=== PATIENT | male | born 1975 | race Two or more races ===

== ENCOUNTER 2019-03-27 17:27 | Emergency (ER) | payer MEDICAID ==
[~2019-03-27] VITALS: Ht 170.2 cm; Wt 54.0 kg
[~2019-03-27 17:27] MED LIST: ALB0.5UD IH; CLIN300C70 PO; LACT1CAP26 PO; LEVO500T2 PO
[2019-03-27 18:20] VITALS: BP 108/57
== END 2019-03-27 18:22 | disposition home or self-care (01) ==
LOC: ER 17:28
DX: F10.129 Alcohol abuse with intoxication, unspecified (principal); R47.81 Slurred speech; I25.2 Old myocardial infarction; J44.9 Chronic obstructive pulmonary disease, unspecified; G89.29 Other chronic pain; F15.90 Other stimulant use, unspecified, uncomplicated; Z88.1 Allergy status to other antibiotic agents; Z88.8 Allergy status to other drugs, medicaments and biological substances; Z79.899 Other long term (current) drug therapy; Y90.9 Presence of alcohol in blood, level not specified
CPT/HCPCS: 99283

== ENCOUNTER 2020-02-11 13:19 | Inpatient (IN) | payer MEDICAID ==
[~2020-02-11] VITALS: Ht 170.2 cm; Wt 56.8 kg
[2020-02-11 13:52] LABS: BASOPHILS # (AUTO) 0.1 X10'3 (0-0.2); EOSINOPHILS % (AUTO) 0.4 % (0-6); HEMATOCRIT 36.4 % (42.0-52.0); HEMOGLOBIN 12.5 g/dl (14.0-17.9); LYMPHOCYTES # (AUTO) 2.3 X10'3 (1.1-4.8); LYMPHOCYTES % (AUTO) 20.6 % (21-51); MEAN CORPUSCULAR HEMOGLOBIN 37.6 PG (27.0-31.0); MEAN CORPUSCULAR HGB CONC 34.3 g/dL (33.0-36.5); MEAN CORPUSCULAR VOLUME 109.5 FL (78-98); MEAN PLATELET VOLUME 7.5 FL (7.4-10.4); MONOCYTES # (AUTO) 1.3 X10'3 (0-0.9); MONOCYTES % (AUTO) 11.2 % (2-12); NEUTROPHILS # (AUTO) 7.5 X10'3 (1.8-7.7); NEUTROPHILS % (AUTO) 66.8 % (42-75); PLATELET COUNT 266 X10'3 (140-440); RED BLOOD COUNT 3.33 X10'6 (4.70-6.10); WHITE BLOOD COUNT 11.2 X10'3 (4.5-11.0)
[2020-02-11 13:59] LABS: ALANINE AMINOTRANSFERASE 14 U/L (12-78); ALBUMIN 2.7 G/DL (3.4-5.0); ALBUMIN/GLOBULIN RATIO 0.7 (1.1-1.5); ALKALINE PHOSPHATASE 111 IU/L (46-116); ANION GAP 12 (8-16); ASPARTATE AMINO TRANSFERASE 65 U/L (10-37); BILIRUBIN,TOTAL 0.3 MG/DL (0.1-1.0); BLOOD UREA NITROGEN 2 MG/DL (7-18); BUN/CREATININE RATIO 3.3 (5.4-32.0); CALCIUM 8.1 MG/DL (8.5-10.1); CHLORIDE 102 MMOL/L (99-107); GLUCOSE 83 MG/DL (70-104); POTASSIUM 3.3 MMOL/L (3.5-5.1); SODIUM 139 MMOL/L (135-145); TOTAL PROTEIN 6.4 G/DL (6.4-8.2); eGFR > 90 ML/MIN
[2020-02-11 14:09] LABS: CREATININE 0.61 MG/DL (0.60-1.10)
[2020-02-11] MEDS ORDERED: CefTRIAXone/D5W-Rocephin 1gm 50 ML IV ONE (16:35)
[2020-02-11] MEDS ORDERED: normal saline 1000ML IV soln IVB ONE (16:35)
[2020-02-11] MEDS ORDERED: dexamethasone sod phosphate 10mg/ml inj IV STA (16:36)
[2020-02-11 16:59] LABS: C-REACTIVE PROTEIN 12.41 MG/DL (0.0-0.5)
[2020-02-11 17:07] LABS: D-DIMER 6.53 MG/L FEU (0-0.50)
[2020-02-11] MEDS ORDERED: HYDROcodone/acetaminophen 10/325mg tab PO PRN (17:10)
[2020-02-11] MEDS ORDERED: HYDROcodone/acetaminophen 5mg/325mg tablet PO PRN (17:10)
[2020-02-11] MEDS ORDERED: morphine 2 MG/ML inj. syringe IV PRN ×2 (17:10)
[2020-02-11] MEDS ORDERED: ondansetron/PF 4mg/2ml inj IV PRN (17:10)
[2020-02-11] MEDS ORDERED: mag hydrox/Alum hydrox/simeth 30ml oral suspension PO PRN (17:10)
[2020-02-11] MEDS ORDERED: magnesium hydroxide 30ml (MOM) UD suspension PO PRN (17:10)
[2020-02-11] MEDS ORDERED: acetaminophen 325mg tablet PO PRN ×2 (17:10)
--- NOTE | 2020-02-11 17:41 | NUR ---
NOTIVED BY LAB PT NEG FOR COVID
[2020-02-11] MEDS ORDERED: LORazepam 2 mg/ml vial IV PRN (19:55)
[2020-02-11] MEDS ORDERED: thiamine inj. 100 MG in normal saline 100ml IV soln 100 ML IV ONE (19:55)
[2020-02-11] MEDS ORDERED: haloperidol lactate 5mg/ml inj IM PRN (19:55)
[2020-02-11] MEDS ORDERED: haloperidol 5mg tablet PO PRN (19:55)
[2020-02-11 20:00] VITALS: BP 143/84
[2020-02-11] MEDS: normal saline 1000ml 1,000 ML IV SCH (21:15)
[2020-02-12] VITALS: BP 164/91
[2020-02-12 06:15] LABS: ALBUMIN 2.3 G/DL (3.4-5.0); ANION GAP 8 (8-16); BLOOD UREA NITROGEN 4 MG/DL (7-18); CALCIUM 8.4 MG/DL (8.5-10.1); CHLORIDE 104 MMOL/L (99-107); CREATININE 0.67 MG/DL (0.60-1.10); GLUCOSE 151 MG/DL (70-104); POTASSIUM 4.6 MMOL/L (3.5-5.1); SODIUM 140 MMOL/L (135-145); eGFR > 90 ML/MIN
[2020-02-12 06:16] LABS: BASOPHILS % (AUTO) 0.5 % (0-1); EOSINOPHILS % (AUTO) 0 % (0-6); HEMATOCRIT 36.9 % (42.0-52.0); HEMOGLOBIN 12.5 g/dl (14.0-17.9); LYMPHOCYTES # (AUTO) 0.6 X10'3 (1.1-4.8); LYMPHOCYTES % (AUTO) 8.1 % (21-51); MEAN CORPUSCULAR HEMOGLOBIN 38.1 PG (27.0-31.0); MEAN CORPUSCULAR HGB CONC 33.9 g/dL (33.0-36.5); MEAN CORPUSCULAR VOLUME 112.5 FL (78-98); MEAN PLATELET VOLUME 8.3 FL (7.4-10.4); MONOCYTES # (AUTO) 0.3 X10'3 (0-0.9); MONOCYTES % (AUTO) 3.7 % (2-12); NEUTROPHILS % (AUTO) 87.7 % (42-75); PLATELET COUNT 234 X10'3 (140-440); RED BLOOD COUNT 3.28 X10'6 (4.70-6.10); RED CELL DISTRIBUTION WIDTH 14.9 % (11.5-14.5)
[2020-02-12 06:30] VITALS: BP 167/92
--- NOTE | 2020-02-12 06:39 | NUR ---
Problems reprioritized. Patient report given, questions answered & plan of care reviewed with Tatiana MORA. Addendum: 02/12/20 at 0639 by Martita Dunbar RN Amended: Links added.
--- NOTE | 2020-02-12 06:40 | NUR ---
Patient in room [facility] 360. I have received report from MORGAN Anders and had the opportunity to ask questions and assume patient care.
[2020-02-12] MEDS: normal saline 1000ml 1,000 ML IV SCH ×3 (07:22→17:54)
[2020-02-12 07:43] LABS: NUCLEATED RED BLOOD CELLS 1 /100WBC (0-0); PLATELET ESTIMATE NORMAL; TOTAL CELLS COUNTED 100
[2020-02-12 07:44] LABS: POLYCHROMASIA FEW
[2020-02-12 07:45] LABS: STOMATOCYTES FEW
[2020-02-12] MEDS ORDERED: multivitamins, therapeutics tablet PO SCH (08:00)
[2020-02-12] MEDS ORDERED: folic acid inj. 2 MG, thiamine inj. 100 MG, MVI, adult No.4 with vit. K 10 ML in dextro... IV SCH ×4 (08:00)
[2020-02-12] MEDS ORDERED: thiamine 100mg tablet PO SCH (08:00)
[2020-02-12] MEDS ORDERED: folic acid 1mg tablet PO SCH (08:00)
[2020-02-12] MEDS: levoFLOXACIN-Levaquin 750MG/D5 150 ML IV SCH (09:25)
[2020-02-12] MEDS: folic acid 1mg tablet PO SCH (09:26)
[2020-02-12] MEDS: multivitamins, therapeutics tablet PO SCH (09:26)
[2020-02-12] MEDS: thiamine 100mg tablet PO SCH (09:26)
[2020-02-12 12:27] VITALS: BP 169/82
--- NOTE | 2020-02-12 18:49 | NUR ---
Patient in room [facility] 360. I have received report from Tatiana MORA and had the opportunity to ask questions and assume patient care.
--- NOTE | 2020-02-12 18:50 | NUR ---
Problems reprioritized. Patient report given, questions answered & plan of care reviewed with MORGAN Ventura.
[2020-02-12] MEDS: lactobacillus rhamnosus 10,000 MMU CELLS/CAPSULE PO SCH (19:15)
[2020-02-12 19:40] VITALS: BP 149/81
[2020-02-13] VITALS: BP 122/71
[2020-02-13] MEDS: normal saline 1000ml 1,000 ML IV SCH (02:50)
--- NOTE | 2020-02-13 06:26 | NUR ---
Problems reprioritized. Patient report given, questions answered & plan of care reviewed with Nimisha MORA.
[2020-02-13 06:32] LABS: BASOPHILS # (AUTO) 0.1 X10'3 (0-0.2); BASOPHILS % (AUTO) 0.7 % (0-1); EOSINOPHILS % (AUTO) 0.1 % (0-6); HEMOGLOBIN 12.3 g/dl (14.0-17.9); LYMPHOCYTES # (AUTO) 2.4 X10'3 (1.1-4.8); LYMPHOCYTES % (AUTO) 22.1 % (21-51); MEAN CORPUSCULAR HEMOGLOBIN 38.6 PG (27.0-31.0); MEAN CORPUSCULAR HGB CONC 34.1 g/dL (33.0-36.5); MEAN CORPUSCULAR VOLUME 113.2 FL (78-98); MEAN PLATELET VOLUME 8.2 FL (7.4-10.4); MONOCYTES # (AUTO) 0.7 X10'3 (0-0.9); MONOCYTES % (AUTO) 6.8 % (2-12); NEUTROPHILS # (AUTO) 7.5 X10'3 (1.8-7.7); NEUTROPHILS % (AUTO) 70.3 % (42-75); PLATELET COUNT 230 X10'3 (140-440); RED BLOOD COUNT 3.18 X10'6 (4.70-6.10); RED CELL DISTRIBUTION WIDTH 15.1 % (11.5-14.5); WHITE BLOOD COUNT 10.7 X10'3 (4.5-11.0)
[2020-02-13 06:44] LABS: ALBUMIN 2.2 G/DL (3.4-5.0); ANION GAP 8 (8-16); BLOOD UREA NITROGEN 3 MG/DL (7-18); BUN/CREATININE RATIO 5.2 (5.4-32.0); CHLORIDE 108 MMOL/L (99-107); CREATININE 0.58 MG/DL (0.60-1.10); GLUCOSE 100 MG/DL (70-104); POTASSIUM 3.1 MMOL/L (3.5-5.1); SODIUM 144 MMOL/L (135-145); TOTAL CARBON DIOXIDE 27.6 MMOL/L (24-32); eGFR > 90 ML/MIN
[2020-02-13 07:00] VITALS: BP 142/81
[2020-02-13 07:25] LABS: PLATELET ESTIMATE NORMAL
[2020-02-13 07:26] LABS: ANISOCYTOSIS 1+; LARGE PLATELETS FEW
[2020-02-13] MEDS: thiamine 100mg tablet PO SCH (07:27)
[2020-02-13] MEDS: lactobacillus rhamnosus 10,000 MMU CELLS/CAPSULE PO SCH (07:27)
[2020-02-13] MEDS: multivitamins, therapeutics tablet PO SCH (07:27)
[2020-02-13] MEDS: folic acid 1mg tablet PO SCH (07:27)
[2020-02-13] MEDS: levoFLOXACIN-Levaquin 750MG/D5 150 ML IV SCH (07:28)
[2020-02-13] MEDS ORDERED: potassium Cl 20 mEq SR tablet PO STA (11:27)
[2020-02-13 11:50] VITALS: BP 133/93
[2020-02-13] MEDS ORDERED: LEVO750T21 PO (12:04)
[2020-02-13] MEDS ORDERED: ALBU8.5H8 IH (12:04)
[2020-02-13] MEDS ORDERED: ondansetron 4mg rapidly disintigrating tab PO PRN (12:10)
--- NOTE | 2020-02-13 13:06 | NUR ---
Medications called into [facility] in [place] per patient request. Patient discharged via self and taken from unit via ambulation with x1 staff.
--- NOTE | 2020-02-13 13:16 | NUR ---
Patient discharged. stable and appropriate. Prescriptions called into preferred pharmacy. Discharge instructions given and reviewed with patient all questions answered. IV removed. All belongings taken from room.
== END 2020-02-13 13:05 | disposition home or self-care (01) | DRG 139 ==
LOC: ER 13:20 → SUR 3N 17:10
PROVIDERS: ADMIT Internal Medicine; ATTEND Internal Medicine
DX: J18.9 Pneumonia, unspecified organism (principal); J96.00 Acute respiratory failure, unspecified whether with hypoxia or hypercapnia; E43 Unspecified severe protein-calorie malnutrition; E87.2 Acidosis; E86.1 Hypovolemia; F15.90 Other stimulant use, unspecified, uncomplicated; G89.29 Other chronic pain; Z20.828 Contact with and (suspected) exposure to other viral communicable diseases; J44.0 Chronic obstructive pulmonary disease with (acute) lower respiratory infection; E87.6 Hypokalemia; F17.210 Nicotine dependence, cigarettes, uncomplicated; I25.2 Old myocardial infarction; Z59.0 Homelessness; Z79.899 Other long term (current) drug therapy; Z87.11 Personal history of peptic ulcer disease; Z68.1 Body mass index [BMI] 19.9 or less, adult; Z88.8 Allergy status to other drugs, medicaments and biological substances
CPT/HCPCS: 36415; 71045; 80048; 80053; 82948; 83605; 83880; 85025; 85379; 86140; 87040; 87081; 87635; 94667; 94668; 94760; 99285; G0378; J0696; J1100; J1956; J7030

== ENCOUNTER 2020-04-26 13:33 | Emergency (ER) | payer MEDICAID ==
[~2020-04-26] VITALS: Ht 170.2 cm; Wt 54.2 kg
[~2020-04-26 13:33] MED LIST changes: +ALBU8.5H8 IH; -CLIN300C70 PO; -LACT1CAP26 PO; -LEVO500T2 PO
[2020-04-26 13:42] VITALS: BP 112/71
[2020-04-26] MEDS ORDERED: CEPH250T PO (15:00)
== END 2020-04-26 15:14 | disposition home or self-care (01) ==
LOC: ER 13:34
DX: L03.012 Cellulitis of left finger (principal); M79.89 Other specified soft tissue disorders; M79.645 Pain in left finger(s); I25.2 Old myocardial infarction; J44.9 Chronic obstructive pulmonary disease, unspecified; G89.29 Other chronic pain; F15.90 Other stimulant use, unspecified, uncomplicated; Z87.11 Personal history of peptic ulcer disease; Z72.89 Other problems related to lifestyle; Z88.1 Allergy status to other antibiotic agents; Z88.8 Allergy status to other drugs, medicaments and biological substances; Z79.2 Long term (current) use of antibiotics; Z79.899 Other long term (current) drug therapy
CPT/HCPCS: 99283

== ENCOUNTER 2020-04-28 13:11 | Emergency (ER) | payer MEDICAID ==
[~2020-04-28] VITALS: Ht 170.2 cm; Wt 44.0 kg
[~2020-04-28 13:11] MED LIST changes: +CEPH250T PO
[2020-04-28] MEDS ORDERED: HYDROcodone/acetaminophen 10/325mg tab PO ONE (15:20)
[2020-04-28] MEDS ORDERED: NAPR-56 PO (16:06)
[2020-04-28] MEDS ORDERED: HYDR-4383 PO (16:06)
[2020-04-28 16:17] VITALS: BP 118/74
== END 2020-04-28 16:15 | disposition home or self-care (01) ==
LOC: ER 13:12
DX: L03.012 Cellulitis of left finger (principal); I25.2 Old myocardial infarction; J45.909 Unspecified asthma, uncomplicated; J44.9 Chronic obstructive pulmonary disease, unspecified; G89.29 Other chronic pain; F15.90 Other stimulant use, unspecified, uncomplicated; Z88.1 Allergy status to other antibiotic agents; Z88.8 Allergy status to other drugs, medicaments and biological substances; Z79.2 Long term (current) use of antibiotics; Z79.899 Other long term (current) drug therapy
CPT/HCPCS: 73140; 99283

== ENCOUNTER 2020-11-12 06:37 | Inpatient (IN) | payer MEDICAID ==
[~2020-11-12] VITALS: Ht 170.2 cm; Wt 53.8 kg
[~2020-11-12 06:37] MED LIST changes: -CEPH250T PO; +HYDR-4383 PO
[2020-11-12] MEDS ORDERED: normal saline 1000ML IV soln IVB ONE (07:10)
[2020-11-12] MEDS ORDERED: ipratropium/albuterol 3ml nebule NEB ONE (07:10)
[2020-11-12] MEDS ORDERED: LORazepam 1 MG tablet PO ONE (07:10)
[2020-11-12] MEDS ORDERED: methylPREDNISolone sod succ 125mg/2ml vial IV ONE (07:10)
[2020-11-12 07:42] LABS: BASOPHILS # (AUTO) 0.1 X10'3 (0-0.2); BASOPHILS % (AUTO) 1.2 % (0-1); EOSINOPHILS % (AUTO) 0.6 % (0-6); HEMATOCRIT 29.1 % (42.0-52.0); HEMOGLOBIN 10.1 g/dl (14.0-17.9); LYMPHOCYTES # (AUTO) 0.9 X10'3 (1.1-4.8); LYMPHOCYTES % (AUTO) 16.5 % (21-51); MEAN CORPUSCULAR HEMOGLOBIN 40.2 PG (27.0-31.0); MEAN CORPUSCULAR HGB CONC 34.5 g/dL (33.0-36.5); MEAN CORPUSCULAR VOLUME 116.5 FL (78-98); MONOCYTES # (AUTO) 0.3 X10'3 (0-0.9); MONOCYTES % (AUTO) 4.5 % (2-12); NEUTROPHILS # (AUTO) 4.4 X10'3 (1.8-7.7); NEUTROPHILS % (AUTO) 77.2 % (42-75); PLATELET COUNT 166 X10'3 (140-440); RED CELL DISTRIBUTION WIDTH 15.8 % (11.5-14.5); WHITE BLOOD COUNT 5.7 X10'3 (4.5-11.0)
[2020-11-12 08:03] LABS: ALANINE AMINOTRANSFERASE 37 U/L (12-78); ALBUMIN 2.3 G/DL (3.4-5.0); ALBUMIN/GLOBULIN RATIO 0.7 (1.1-1.5); ALKALINE PHOSPHATASE 239 IU/L (46-116); ANION GAP 13 (8-16); ASPARTATE AMINO TRANSFERASE 169 U/L (10-37); BILIRUBIN,TOTAL 1.5 MG/DL (0.1-1.0); CALCIUM 8.2 MG/DL (8.5-10.1); CHLORIDE 101 MMOL/L (99-107); CREATININE 0.69 MG/DL (0.60-1.10); GLUCOSE 116 MG/DL (70-104); POTASSIUM 3.6 MMOL/L (3.5-5.1); SODIUM 139 MMOL/L (135-145); TOTAL CARBON DIOXIDE 24.8 MMOL/L (24-32); TOTAL PROTEIN 5.7 G/DL (6.4-8.2); eGFR > 90 ML/MIN
[2020-11-12 08:07] LABS: BLOOD UREA NITROGEN 6 MG/DL (7-18); BUN/CREATININE RATIO 8.7 (5.4-32.0)
[2020-11-12] MEDS ORDERED: enoxaparin 100mg/ml syringe SUBCUT ONE (08:25)
[2020-11-12] MEDS ORDERED: aspirin 81mg tab.chew PO ONE (08:25)
[2020-11-12] MEDS ORDERED: iohexol 350MG/ML 100ml bottle IV ONE (08:35)
--- NOTE | 2020-11-12 08:53 | NUR ---
Pt taken to CT
[2020-11-12 08:59] LABS: HYPOCHROMASIA 1+; PLATELET ESTIMATE NORMAL; TOTAL CELLS COUNTED 100
[2020-11-12 09:01] LABS: ETHANOL 0.057 GM/DL (0.0-0.010)
[2020-11-12 09:04] LABS: D-DIMER 3.48 MG/L FEU (0-0.50)
[2020-11-12 09:05] LABS: POLYCHROMASIA FEW
[2020-11-12 09:16] LABS: STOMATOCYTES 2+
[2020-11-12] MEDS ORDERED: acetaminophen 325mg tablet PO PRN ×2 (09:35)
[2020-11-12] MEDS ORDERED: magnesium hydroxide 30ml (MOM) UD suspension PO PRN (09:35)
[2020-11-12] MEDS ORDERED: morphine 2 MG/ML inj. syringe IV PRN ×2 (09:35)
[2020-11-12] MEDS ORDERED: mag hydrox/Alum hydrox/simeth 30ml oral suspension PO PRN ×2 (09:35→11:40)
[2020-11-12] MEDS ORDERED: HYDROcodone/acetaminophen 10/325mg tab PO PRN (09:35)
[2020-11-12] MEDS ORDERED: nitroGLYCERIN 0.4mg SUBLingual tab SL PRN (09:35)
[2020-11-12] MEDS ORDERED: ondansetron/PF 4mg/2ml inj IV PRN (09:35)
[2020-11-12] MEDS ORDERED: HYDROcodone/acetaminophen 5mg/325mg tablet PO PRN (09:35)
[2020-11-12 09:55] LABS: URINE AMPHETAMINE SCREEN NEGATIVE (Neg); URINE BARBITUATE SCREEN NEGATIVE (Neg); URINE BENZODIAZEPINES SCREEN NEGATIVE (Neg); URINE CANNABINOID SCREEN POSITIVE (Neg); URINE COCAINE SCREEN NEGATIVE (Neg); URINE METHADONE SCREEN NEGATIVE (Neg); URINE OPIATE SCREEN NEGATIVE (Neg); URINE PHENCYCLIDINE SCREEN NEGATIVE (Neg)
--- NOTE | 2020-11-12 10:00 | NUR ---
Patient in room PCU 3013. I have received report from MORGAN Cui and had the opportunity to ask questions and assume patient care.
--- NOTE | 2020-11-12 10:45 | NUR ---
Patient arrived from ED via w/c and settled into bed. Oriented to unit. Resting in bed.
[2020-11-12] MEDS ORDERED: dicyclomine 10 MG capsule PO PRN (11:40)
[2020-11-12] MEDS ORDERED: cyclobenzaprine 10mg tablet PO PRN (11:40)
[2020-11-12] MEDS ORDERED: loperamide 2mg capsule PO PRN (11:40)
[2020-11-12] MEDS ORDERED: haloperidol 5mg tablet PO PRN (11:40)
[2020-11-12] MEDS ORDERED: cloNIDine 0.1 mg tablet PO PRN (11:40)
[2020-11-12] MEDS: nicotine 21mg patch - 24 hr TD SCH (11:40)
[2020-11-12] MEDS ORDERED: thiamine inj. 100 MG in normal saline 100ml IV soln 100 ML IV ONE (11:40)
[2020-11-12] MEDS ORDERED: folic acid inj. 2 MG, thiamine inj. 100 MG, MVI, adult No.4 with vit. K 10 ML in dextro... IV SCH ×4 (11:40)
[2020-11-12] MEDS ORDERED: haloperidol lactate 5mg/ml inj IM PRN (11:40)
--- NOTE | 2020-11-12 11:54 | NUR ---
Paged Dr. Rouse re: pt covid swab: PAGER ID: [phone] MESSAGE: pt jamie Cotton rm [id number] RE: covid swab: Dr. Boothe requires call from hospitalist to initiate. Can you speak to Dr. Boothe? Thank you Michelle [phone]
[2020-11-12 12:00] VITALS: BP 118/78
[2020-11-12] MEDS: LORazepam 2 mg/ml vial IV PRN ×2 (12:06→20:00)
[2020-11-12] MEDS: folic acid 1mg/0.2ml inj IV SCH (12:39)
[2020-11-12] MEDS ORDERED: ALBU8HFA PO (12:43)
[2020-11-12] MEDS ORDERED: BUDE10.26 IH (12:43)
--- NOTE | 2020-11-12 12:57 | NUR ---
Malnutrition Consult: Pt admit DX tachycardia hx heavy etoh and meth abuse s/p [facility] per E[facility]. MCV 116.5 on admit receiving thiamin and folic acid for etoh per EMR. Current bed scaled wt 53.8kg; noted pt prior admit February 2020 standing scaled wt 56.8kg -3kg(5%) 9 months non- significant wt loss. Physical assessment and PO documentation of regular diet pending at this time. Will need further information prior to deciding malnutrition status. Addendum: 11/12/20 at [address] Amended: Links added.
[2020-11-12 15:00] VITALS: BP 125/78
--- NOTE | 2020-11-12 16:52 | NUR ---
Paged Dr. Rouse: PAGER ID: [phone] MESSAGE: pt jamie Cotton [id number] follow-up re: COVID swab. Would you still like a covid swab on this pt? Michelle [phone]
[2020-11-12 18:00] VITALS: BP 123/88
--- NOTE | 2020-11-12 18:11 | NUR ---
Problems reprioritized. Patient report given, questions answered & plan of care reviewed with MORGAN Brandt.
--- NOTE | 2020-11-12 18:15 | NUR ---
Patient in room PCU 3013. I have received report from Michelle MORA and had the opportunity to ask questions and assume patient care.
[2020-11-12] MEDS: enoxaparin 60mg/0.6ml syringe SUBCUT SCH (19:51)
[2020-11-12 22:00] VITALS: BP 115/70
[2020-11-13 02:00] VITALS: BP 124/73
[2020-11-13] MEDS: LORazepam 2 mg/ml vial IV PRN ×2 (04:34→07:54)
[2020-11-13 06:00] VITALS: BP 106/63
--- NOTE | 2020-11-13 06:10 | NUR ---
Patient in room PCU 3010. I have received report from MORGAN Brandt and had the opportunity to ask questions and assume patient care.
--- NOTE | 2020-11-13 06:10 | NUR ---
Problems reprioritized. Patient report given, questions answered & plan of care reviewed with Michelle MORA.
[2020-11-13 07:51] LABS: BASOPHILS % (AUTO) 0.3 % (0-1); EOSINOPHILS % (AUTO) 0.2 % (0-6); HEMATOCRIT 27.4 % (42.0-52.0); HEMOGLOBIN 9.1 g/dl (14.0-17.9); LYMPHOCYTES % (AUTO) 27.2 % (21-51); MEAN CORPUSCULAR HEMOGLOBIN 40.2 PG (27.0-31.0); MEAN CORPUSCULAR HGB CONC 33.4 g/dL (33.0-36.5); MEAN CORPUSCULAR VOLUME 120.1 FL (78-98); MEAN PLATELET VOLUME 8.8 FL (7.4-10.4); MONOCYTES # (AUTO) 0.4 X10'3 (0-0.9); MONOCYTES % (AUTO) 4.7 % (2-12); NEUTROPHILS # (AUTO) 5.1 X10'3 (1.8-7.7); NEUTROPHILS % (AUTO) 67.6 % (42-75); PLATELET COUNT 138 X10'3 (140-440); RED BLOOD COUNT 2.28 X10'6 (4.70-6.10); RED CELL DISTRIBUTION WIDTH 15.9 % (11.5-14.5); WHITE BLOOD COUNT 7.5 X10'3 (4.5-11.0)
[2020-11-13] MEDS: aspirin 81mg tablet.DR PO SCH (07:52)
[2020-11-13] MEDS: thiamine 100mg tablet PO SCH (07:52)
[2020-11-13] MEDS: enoxaparin 60mg/0.6ml syringe SUBCUT SCH (07:54)
[2020-11-13] MEDS: folic acid 1mg/0.2ml inj IV SCH (07:54)
[2020-11-13] MEDS: nicotine 21mg patch - 24 hr TD SCH (07:59)
[2020-11-13] MEDS ORDERED: thiamine inj. 100 MG in normal saline 100ml IV soln 100 ML IV SCH (08:00)
[2020-11-13 08:03] LABS: ALANINE AMINOTRANSFERASE 36 U/L (12-78); ALBUMIN 2.1 G/DL (3.4-5.0); ALBUMIN/GLOBULIN RATIO 0.7 (1.1-1.5); ALKALINE PHOSPHATASE 222 IU/L (46-116); AMYLASE 54 U/L (25-115); ANION GAP 8 (8-16); ASPARTATE AMINO TRANSFERASE 125 U/L (10-37); BILIRUBIN,TOTAL 1.2 MG/DL (0.1-1.0); BLOOD UREA NITROGEN 4 MG/DL (7-18); BUN/CREATININE RATIO 4.7 (5.4-32.0); CALCIUM 8.1 MG/DL (8.5-10.1); CHLORIDE 108 MMOL/L (99-107); CHOL/HDL RATIO 4.9 (0.00-4.99); CHOLESTEROL 214 MG/DL (0-200); CREATININE 0.85 MG/DL (0.60-1.10); GLUCOSE 98 MG/DL (70-104); HDL CHOLESTEROL 44 MG/DL (35-60); LDL CHOLESTEROL 124 MG/DL (50-100); LIPASE 194 U/L (73-393); PHOSPHORUS 2.7 MG/DL (2.3-4.5); POTASSIUM 3.6 MMOL/L (3.5-5.1); SODIUM 143 MMOL/L (135-145); TOTAL CARBON DIOXIDE 27.2 MMOL/L (24-32); TOTAL PROTEIN 5.3 G/DL (6.4-8.2); TRIGLYCERIDES 145 MG/DL (20-135); eGFR > 90 ML/MIN
--- NOTE | 2020-11-13 09:55 | NUR ---
Paged RT for eval and tx: re: Marielena Cotton rm [id number]. New order for RT eval and tx. Pt requesting breathing MD oni okayed. Thank you. Michelle [phone]
[2020-11-13] MEDS: nicotine 14mg patch - 24hr TD SCH (10:16)
[2020-11-13 11:00] VITALS: BP 110/70
[2020-11-13] MEDS ORDERED: albuterol 2.5 MG/3 ML nebule NEB SCH (12:00)
[2020-11-13] MEDS: albuterol 2.5 MG/3 ML nebule NEB SCH ×3 (14:59→22:45)
[2020-11-13 15:00] VITALS: BP 111/71
--- NOTE | 2020-11-13 15:14 | NUR ---
Malnutrition follow up: Per physical assessment, pt has no edema and normal muscle strength. PO intake 50-75% on regular diet, pt meeting estimated nutrient needs. At this time, pt lacks a minimum of 2 criteria for malnutrition, will provide full assessment at date above. Addendum: 11/13/20 at [address] Amended: Links added. Addendum: 11/13/20 at [address] MAYELA agrees w/ above winter intern note.
[2020-11-13 18:00] VITALS: BP 112/73
--- NOTE | 2020-11-13 18:05 | NUR ---
Problems reprioritized. Patient report given, questions answered & plan of care reviewed with MORGAN Brandt.
[2020-11-13] MEDS: apixaban 5mg tablet PO SCH (19:33)
[2020-11-13 22:00] VITALS: BP 115/78
[2020-11-14 02:00] VITALS: BP 123/83
[2020-11-14] MEDS: albuterol 2.5 MG/3 ML nebule NEB SCH ×3 (02:52→11:00)
--- NOTE | 2020-11-14 06:24 | NUR ---
Problems reprioritized. Patient report given, questions answered & plan of care reviewed with Mitali MORA.
--- NOTE | 2020-11-14 06:30 | NUR ---
Patient in room PCU 3010. I have received report from Eligio MORA and had the opportunity to ask questions and assume patient care.
[2020-11-14 07:00] VITALS: BP 123/77
[2020-11-14] MEDS: thiamine 100mg tablet PO SCH (07:56)
[2020-11-14] MEDS: LORazepam 2 mg/ml vial IV PRN (07:57)
[2020-11-14] MEDS: aspirin 81mg tablet.DR PO SCH (07:57)
[2020-11-14] MEDS: apixaban 5mg tablet PO SCH (07:57)
[2020-11-14] MEDS: nicotine 14mg patch - 24hr TD SCH (07:57)
[2020-11-14] MEDS ORDERED: folic acid 1mg tablet PO SCH (08:00)
[2020-11-14 08:21] LABS: BASOPHILS % (AUTO) 0.5 % (0-1); EOSINOPHILS # (AUTO) 0.1 X10'3 (0-0.9); EOSINOPHILS % (AUTO) 1.1 % (0-6); HEMATOCRIT 27.7 % (42.0-52.0); HEMOGLOBIN 9.4 g/dl (14.0-17.9); LYMPHOCYTES # (AUTO) 2.3 X10'3 (1.1-4.8); LYMPHOCYTES % (AUTO) 38.5 % (21-51); MEAN CORPUSCULAR HEMOGLOBIN 40.7 PG (27.0-31.0); MEAN CORPUSCULAR HGB CONC 33.9 g/dL (33.0-36.5); MEAN PLATELET VOLUME 8.3 FL (7.4-10.4); MONOCYTES # (AUTO) 0.3 X10'3 (0-0.9); MONOCYTES % (AUTO) 5.1 % (2-12); NEUTROPHILS # (AUTO) 3.3 X10'3 (1.8-7.7); NEUTROPHILS % (AUTO) 54.8 % (42-75); PLATELET COUNT 144 X10'3 (140-440); RED BLOOD COUNT 2.31 X10'6 (4.70-6.10); RED CELL DISTRIBUTION WIDTH 16.2 % (11.5-14.5)
[2020-11-14 08:45] LABS: ANION GAP 8 (8-16); BILIRUBIN,TOTAL 0.6 MG/DL (0.1-1.0); BLOOD UREA NITROGEN 4 MG/DL (7-18); BUN/CREATININE RATIO 5.3 (5.4-32.0); CALCIUM 8.2 MG/DL (8.5-10.1); CHLORIDE 107 MMOL/L (99-107); CREATININE 0.75 MG/DL (0.60-1.10); GLUCOSE 118 MG/DL (70-104); MAGNESIUM 1.6 MG/DL (1.5-2.4); PHOSPHORUS 4.2 MG/DL (2.3-4.5); POTASSIUM 3.1 MMOL/L (3.5-5.1); SODIUM 144 MMOL/L (135-145); TOTAL CARBON DIOXIDE 29.3 MMOL/L (24-32); TOTAL PROTEIN 5.4 G/DL (6.4-8.2); eGFR > 90 ML/MIN
[2020-11-14 08:46] LABS: ALANINE AMINOTRANSFERASE 29 U/L (12-78); ALBUMIN 2.1 G/DL (3.4-5.0); ALBUMIN/GLOBULIN RATIO 0.6 (1.1-1.5); ALKALINE PHOSPHATASE 206 IU/L (46-116); AMYLASE 70 U/L (25-115); ASPARTATE AMINO TRANSFERASE 82 U/L (10-37); LIPASE 251 U/L (73-393)
[2020-11-14 09:13] LABS: ANISOCYTOSIS 1+; HYPOCHROMASIA 1+; PLATELET ESTIMATE NORMAL; POLYCHROMASIA FEW
[2020-11-14] MEDS ORDERED: BUDE10.26 IH (09:40)
[2020-11-14] MEDS ORDERED: APIX5TAB3 PO (11:18)
[2020-11-14] MEDS ORDERED: LORazepam 2 mg/ml vial IV PRN (11:40)
[2020-11-14] MEDS ORDERED: LORazepam 1 MG tablet PO PRN (11:40)
--- NOTE | 2020-11-14 15:20 | NUR ---
Pt stable for discharge per MD order, all discharge instructions reviewed with patient and all questions answered. PIV discontinued, cannula intact. Telemetry discontinued, maintenance mechanic telephone notified. New prescriptions faxed to pharmacy. All belongings collected and sent with patient. Pt picked up in taxi in front lobby, wheeled to lobby by staff.
[2020-11-15 14:37] LABS: ANTITHROMBIN ACTIVITY 75 % (75-135); ANTITHROMBIN ANTIGEN 62 % (72-124)
[2020-11-16] MEDS ORDERED: LORazepam 2 mg/ml vial IV PRN (11:40)
[2020-11-16] MEDS ORDERED: LORazepam 1 MG tablet PO PRN (11:40)
== END 2020-11-14 12:42 | disposition home or self-care (01) | DRG 140 ==
LOC: ER 06:42 → ED HOLD 09:33 → PCU 3S 10:40
PROVIDERS: ADMIT Internal Medicine; ATTEND Internal Medicine
PROC: B2261ZZ Computerized Tomography (CT Scan) of Right and Left Heart using Low Osmolar Contrast (ICD-10-PCS; principal; 2020-11-12)
DX: J44.1 Chronic obstructive pulmonary disease with (acute) exacerbation (principal); I21.A1 Myocardial infarction type 2; E43 Unspecified severe protein-calorie malnutrition; I26.99 Other pulmonary embolism without acute cor pulmonale; D68.59 Other primary thrombophilia; F15.90 Other stimulant use, unspecified, uncomplicated; F17.200 Nicotine dependence, unspecified, uncomplicated; Z88.8 Allergy status to other drugs, medicaments and biological substances; I25.2 Old myocardial infarction; G89.29 Other chronic pain; J40 Bronchitis, not specified as acute or chronic; Z87.11 Personal history of peptic ulcer disease; D53.9 Nutritional anemia, unspecified; Z59.0 Homelessness; Z79.01 Long term (current) use of anticoagulants; Z68.1 Body mass index [BMI] 19.9 or less, adult; F10.129 Alcohol abuse with intoxication, unspecified; Y90.9 Presence of alcohol in blood, level not specified; Z20.822 Contact with and (suspected) exposure to COVID-19
CPT/HCPCS: 36415; 71045; 71275; 80053; 80061; 80305; 80320; 81479; 82150; 82948; 83690; 83735; 83880; 83891; 83894; 83898; 84100; 84484; 85007; 85008; 85025; 85300; 85301; 85303; 85305; 85306; 85379; 85610; 86146; 86147; 87081; 87426; 93005; 93306; 93308; 94640; 94760; 96361; 96374; 97116; 97161; 97530; 99285; G0378; J1650; J2060; J2270; J2930; J3411; J3490; J7030; Q9967